=== PATIENT | male | born 1930 | race Caucasian/White ===

== ENCOUNTER 2017-11-02 05:30 | Emergency (ER) | payer OTHER ==
[~2017-11-02] VITALS: Ht 182.9 cm; Wt 80.7 kg
[~2017-11-02 05:30] MED LIST: ALTACE1.25 M1; ATENOLOL25 MG; IMODIUM A-D2 MG PO; PLAVIX75 MG
== END 2017-11-02 15:29 | disposition home or self-care (01) ==
LOC: ER 05:30 → CPU-OBS 05:35 → ER 05:35
DX: R07.89 Other chest pain (principal)

== ENCOUNTER 2018-04-20 17:15 | Emergency (ER) | payer OTHER ==
[~2018-04-20] VITALS: Ht 182.9 cm; Wt 81.6 kg
[2018-04-20] MEDS ORDERED: ASPIR 8181 MG (17:33)
[2018-04-20] MEDS ORDERED: HYDROCHLOROTH12.5 M1 (17:33)
== END 2018-04-20 20:29 | disposition home or self-care (01) ==
LOC: ER 17:15
DX: S02.2XXA Fracture of nasal bones, initial encounter for closed fracture (principal); S00.83XA Contusion of other part of head, initial encounter; V49.9XXA Car occupant (driver) (passenger) injured in unspecified traffic accident, initial encounter; Y93.89 Activity, other specified; Y92.488 Other paved roadways as the place of occurrence of the external cause; Y99.8 Other external cause status

== ENCOUNTER 2019-02-06 08:45 | Emergency (ER) | payer OTHER ==
[~2019-02-06] VITALS: Ht 180.3 cm; Wt 81.6 kg
[~2019-02-06 08:45] MED LIST changes: +ASPIR 8181 MG; +HYDROCHLOROTH12.5 M1
[2019-02-06] MEDS ORDERED: HUMULIN 70100 UNIT/1 (09:09)
== END 2019-02-06 10:18 | disposition home or self-care (01) ==
LOC: ER 08:45
DX: S92.335A Nondisplaced fracture of third metatarsal bone, left foot, initial encounter for closed fracture (principal); S92.355A Nondisplaced fracture of fifth metatarsal bone, left foot, initial encounter for closed fracture; W18.31XA Fall on same level due to stepping on an object, initial encounter; Y93.01 Activity, walking, marching and hiking; Y92.488 Other paved roadways as the place of occurrence of the external cause; Y99.8 Other external cause status

== ENCOUNTER 2021-11-05 17:00 | Emergency (ER) | payer OTHER ==
[~2021-11-05] VITALS: Ht 182.9 cm; Wt 81.6 kg
[~2021-11-05 17:00] MED LIST changes: +HUMULIN 70100 UNIT/1
== END 2021-11-06 15:38 | disposition home or self-care (01) ==
LOC: ER 17:00
DX: K92.1 Melena (principal); E11.9 Type 2 diabetes mellitus without complications; Z79.4 Long term (current) use of insulin